=== PATIENT | male | born 1990 | race Two or more races ===

== ENCOUNTER → 2017-04-06 | Outpatient (CLI) | payer SELFPAY ==
[~2017-04-06] MED LIST: MIRALAX17 GM PO; NORCO 5-325 TA1 EACH PO
== END | disposition disaster alternative care site (69) ==
LOC: GAMB 00:17
DX: M54.5 Low back pain (principal); T14.90 Injury, unspecified; W19.XXXA Unspecified fall, initial encounter
CPT/HCPCS: A0425; A0428

== ENCOUNTER 2017-04-07 00:27 | Observation (INO) | payer SELFPAY ==
[~2017-04-07] VITALS: Ht 172.7 cm; Wt 116.0 kg
--- NOTE | ~2017-04-07 | CON ---
PATIENT'S NAME: NIKUNJ BLOOM [facility] AGE: 26 Y [address] ROOM: [place] [address] LOCATION: [facility] ADMIT DATE: 04/07/2017 Consultation DISCHARGE DATE: FAMILY PHYSICIAN: PHYSICIAN, UNKNOWN ATTENDING PHYSICIAN: JOE FAJARDO DATE OF CONSULTATION: 04/07/2017 CHIEF COMPLAINT: Fall from ladder with right humerus fracture. HISTORY: The patient is a 26-year-old male who fell about 12 feet from a ladder, who was seen in an outside hospital and found to have a humerus fracture. They were concerned about other possible injuries, so he was flown to [facility]. He was evaluated by the ER physician again and cleared for other significant injury, C-spine was cleared by the ER as well. The patient is complaining primarily of right humerus pain. Denies numbness or tingling. ORTHOPEDIC PHYSICAL EXAMINATION: GENERAL: A well-developed, well-nourished male, in [id number] distress. He is awake, alert, and cooperative with the exam. NECK: Supple and nontender. He has full C-spine range of motion without pain. MUSCULOSKELETAL: Examination of the left upper extremity and bilateral lower extremities reveal no pain to palpation or range of motion. No crepitus or deformity. The extremities are neurovascularly intact. Examination of the right upper extremity, he was in an air splint, this was deflated. There was swelling around the humerus. Compartments are soft. The skin is intact. He is nontender over the clavicle and shoulder and nontender over the elbow, forearm, wrist, and hand. Radial pulses are 2+. Medial, ulnar, and radial nerves are intact on motor and sensory testing. X-RAYS: We have one view of the humerus, which shows a short oblique humeral shaft fracture, looks like it is just distal to mid shaft, but again we do not see the entire humerus in this. IMPRESSION: Right humeral shaft fracture. PLAN: We are going to get better x-rays in the ER to fully evaluate this fracture, but recommendation is going to be for nonoperative treatment of his humeral PATIENT'S NAME: NIKUNJ BLOOM [facility] AGE: 26 Y [address] ROOM: [place] [address] LOCATION: [facility] ADMIT DATE: 04/07/2017 Consultation DISCHARGE DATE: FAMILY PHYSICIAN: PHYSICIAN, UNKNOWN ATTENDING PHYSICIAN: JOE FAJARDO shaft fracture. We will put him in a shoulder immobilizer tonight. He is going to be admitted to the hospitalist for pain control. We will have Log [employer]er come and put a Grant humeral fracture brace on him in the morning and this will be definitive treatment of his humeral fracture, and he can be discharged when the pain is controlled. He will follow up in the office. MD TIANNA LAMBERT/rima /[id number] d: 04/07/174 t: 04/13/17 1552, CONSULTATION REPORT
--- NOTE | ~2017-04-07 | OR ---
PATIENT'S NAME: NIKUNJ BLOOM [place] AGE: 26 Y [address] ROOM: [place] [address] LOCATION: [facility] ADMIT DATE: 04/07/2017 OR/Procedure Report DISCHARGE DATE: FAMILY PHYSICIAN: Physician, Unknown ATTENDING PHYSICIAN: Lidia Roberts SURGEON: Som Sewell MD CHIEF ENGINEER WATERWORKS: DATE OF PROCEDURE: 04/07/2017 PREOPERATIVE DIAGNOSIS: Right humeral shaft fracture. POSTOPERATIVE DIAGNOSIS: Right humeral shaft fracture. PROCEDURE: Nonoperative treatment, right humeral shaft fracture. DESCRIPTION OF OPERATION: The patient was seen in the ER with an angulated humeral shaft fracture. Recommendation was made for nonoperative treatment. This will initially be a shoulder immobilizer followed by a Grant humeral fracture brace. POSTOPERATIVE PLAN: We will follow him up once he is discharged as an outpatient with serial x-rays until healing. SOM SEWELL MD DMH/modl /[id number] d: 04/07/17 0127 t: 04/13/17 1550, OPERATIVE SUMMARY
--- NOTE | ~2017-04-07 | HP ---
[facility] 26 [facility] [address] ROOM: [place] [address] LOCATION: [facility] ADMIT DATE: 04/07/2017 History & Physical DISCHARGE DATE: FAMILY PHYSICIAN: PHYSICIAN, UNKNOWN ATTENDING PHYSICIAN: JOE FAJARDO DATE OF SERVICE: CHIEF COMPLAINT: Right shoulder pain after a mechanical fall. HISTORY OF PRESENT ILLNESS: This is a 26-year-old male who says that he was at home earlier today trying to fix some lamp while he was climbing up the ladder at home. Accidentally, he tripped and he fell off the ladder and he felt this pain in his right shoulder. He denies any head trauma or any syncope or any confusion or any chest pain or shortness of breath or any other complaints except the pain in the right shoulder. He knew he had fractured his shoulder because he could not really move and he was in excruciating pain from right shoulder. The patient was taken to the outside facility in [place] for evaluation where he was found to have a mid right humeral shaft fracture. The patient was referred here for our orthopedic care. The patient is a healthy individual, denies any past medical history, and does not take any medication. REVIEW OF SYSTEMS: As mentioned in the history of present illness. All other systems were reviewed and were negative except those mentioned in history of present illness. PAST MEDICAL HISTORY: None. ALLERGIES: NONE. HOME MEDICATIONS: None. SOCIAL HISTORY: Denies any cigarette, alcohol, or any illegal drug use. PAST SURGICAL HISTORY: None. PATIENT'S NAME: [facility] AGE: 26 Y [address] ROOM: [place] [address] LOCATION: [facility] ADMIT DATE: 04/07/2017 History & Physical DISCHARGE DATE: FAMILY PHYSICIAN: PHYSICIAN, UNKNOWN ATTENDING PHYSICIAN: JOE FAJARDO FAMILY HISTORY: Father is in [place], he does not know much about his father. His mother is healthy. PHYSICAL EXAMINATION: VITAL SIGNS: At time of my dictation, temperature 98, heart rate 84, blood pressure 135/97, respirations 16, and saturation 100% on room air. GENERAL APPEARANCE: Alert and oriented x3, currently in no acute distress. HEENT: Pupils are equally round and reactive to light. Extraocular muscles are intact. Anicteric sclerae. Nasal turbinates are normal bilaterally. Moist oral mucosa. NECK: No JVD. CARDIOVASCULAR: Regular rate and rhythm. Normal S1, S2. No murmur. No rubs. No gallops. RESPIRATORY: Clear to auscultation. No rales. No rhonchi. No wheezing. No crackles. ABDOMEN: Soft, nontender, nondistended, bowel sounds present, and no mass. EXTREMITIES: No edema in upper or lower extremities. Right shoulder has a shoulder immobilizer in place. Sensation and strength intact in all extremities. Cannot assess range of motion in the right shoulder due to the fracture, however, he has good strength in the right hand with journalism intern. Radial pulses are present, +2 bilaterally. NEUROLOGIC: Grossly nonfocal. LABORATORY DATA: None. IMAGING STUDIES: From the outside facility in [place], x-ray of the right shoulder showed mid humeral shaft fracture. Cervical spine, outside facility showed no acute abnormality. ASSESSMENT AND PLAN: 1. Right mid humeral shaft fracture after a mechanical fall: Orthopedic Surgery already saw the patient in the emergency room and the plan will be tomorrow he will have an immobilizer placed, and the patient does not require any surgical intervention and can be discharged home tomorrow after the immobilizer is exchanged and placed. The patient will be admitted under observation status and can have a regular diet and ambulate as tolerated. Pain control with IV morphine p.r.n. and IV fentanyl p.r.n. and also p.o. [place] p.r.n. and p.o. Tylenol p.r.n. The patient also gets iv Valium p.r.n. for muscle spasm. PATIENT'S NAME: NIKUNJ BLOOM [facility] AGE: 26 Y [address] ROOM: [place] [address] LOCATION: [facility] ADMIT DATE: 04/07/2017 History & Physical DISCHARGE DATE: FAMILY PHYSICIAN: PHYSICIAN, UNKNOWN ATTENDING PHYSICIAN: JOE FAJARDO 2. Right humerus shoulder fracture's pain control: See #1. 3. He is a full code. 4. DVT prophylaxis: He can walk, this is a humeral fracture, this is not a pelvic fracture. He is young, does not require any pharmacological agent. Time spent in care on the day of admission 25 minutes, where 5 minutes was spent on chart review, and remainder of the time was spent in interview and physical examination and also on counseling. The counseling includes going over the plan of care with the patient and also addressing all the questions and concerns that the patient had, and also I answered all his questions to his satisfaction. Further plan will depend on clinical course. MD PO CANO/rima /[id number] D: T: 658 HISTORY & PHYSICAL
--- NOTE | ~2017-04-07 | ER ---
[facility] 26 Y [address] ROOM: [place] [address] LOCATION: [facility] ADMIT DATE: 04/07/2017 ER/Outpatient Report DISCHARGE DATE: FAMILY PHYSICIAN: PHYSICIAN, UNKNOWN ATTENDING PHYSICIAN: JOE FAJARDO HISTORY OF PRESENT ILLNESS: This is a 26-year-old right-hand dominant male, who presents today as a transfer from [place] with a known right humerus fracture. The patient reports that approximately at 8 p.m. on 04/06/2017, which is about 4 hours prior to coming in he fell off a ladder. He says that there was something wrong with the ladder and fell about 12 feet. He fell to his right thigh direct blow. The patient really complains of just pain in that right arm and also on the right side. Denies any other complaints in his head. He says he has no neck pain. No back pain. No other complaints. No numbness or tingling. He was seen at the [place] ER. He had an x-ray of his cervical spine done and they put him in a C-collar. He also had an x-ray of his humerus, which shows a slightly angulated midshaft humerus fracture. The patient was then transferred here. He currently rates his pain as 6/10, but has required multiple doses of fentanyl and morphine. PAST MEDICAL HISTORY: None. PAST SURGICAL HISTORY: None. SOCIAL HISTORY: He does not smoke, drink, or use any drugs. MEDICATIONS: None. ALLERGIES: NONE. REVIEW OF SYSTEMS: Reviewed by me with the exception of those discussed in HPI. PHYSICAL EXAMINATION: VITAL SIGNS: He is 5 feet 8 inches, he weighs 116 kilos, blood pressure 127/78, heart rate 68, temp is 97.4, sats are 99% on room air. GENERAL: The patient does not appear in any acute distress at this time. HEENT: He has not had a dry mouth. Pupils equal and reactive to light. He has no C-spine tenderness at all. PATIENT'S NAME: NIKNUJ BLOOM [facility] AGE: 26 Y [address] ROOM: [place] [address] LOCATION: [facility] ADMIT DATE: 04/07/2017 ER/Outpatient Report DISCHARGE DATE: FAMILY PHYSICIAN: PHYSICIAN, UNKNOWN ATTENDING PHYSICIAN: JOE FAJARDO HEART: His heart rate is regular rate and rhythm at this time. LUNGS: His lungs sounds are clear. He has no chest wall tenderness. No crepitus. ABDOMEN: Soft, nontender, nondistended. He has no flank tenderness bilaterally. PELVIS: Stable. He has no suprapubic tenderness. No right lower quadrant tenderness. No upper quadrant tenderness. He has no bruising on his back. EXTREMITIES: Show his right arm is currently in a vacuum splint. There is no obvious deformity. He has soft compartments. So, he is able to wiggle his fingers. Intact sensation in bilateral upper and lower extremities. EMERGENCY ROOM COURSE: Dr. Gonzalez was consulted and he wrote notes ordering for a brace. He will be nonsurgical; however, the patient would need admission for pain control. Discussed with Dr. Fajardo, the hospitalist. The patient to be admitted to observation status for pain control for this humerus fracture. IMPRESSION: Humerus fracture. MD MAIRA SZYMANSKI/rima /[id number] d: 04/07/17 0542 t: 04/08/17 0406, OUTPATIENT REPORT
--- NOTE | 2017-04-07 07:52 | NUR ---
Admission Note: Pt arrived to floor at 0445. Pt had fallen approx 15 foot off a ladder this past evening and fracured his R) humerus. Pt is primarly citizen of [place] speaking, does understand maltese and is able to communicate fairly well. Arrived to floor via strecther, ambulated from stretcher to bed with SBA. Immobilizer on to RUE. CSM WNL. No known allergies. No signficant past medical history. Smokes and drinks alcohol occasionally. Vital signs stable. Foot pumps placed to bilateral feet. Verbalizes understanding of call light. Instructed to call if chest pain, shortness of breath, dizziness, etc. IV present to L) hand. Animal Technician to be called in am for brace, see orders.
--- NOTE | 2017-04-07 08:16 | NUR ---
Significant Event: To floor at 0445. Morphine 2 mg and [place] given. Pt sleeping after administration. IV to L) hand. Immobilizer on R) shoulder. CSM WNL. Ice. Foot pumps. Transferred with 1 assist, weak. Follow up: Property Utilization Manager to fit for brace.
[2017-04-07] MEDS ORDERED: NORCO 5-325 TA1 EACH PO (15:23)
[2017-04-07] MEDS ORDERED: MIRALAX17 GM PO (15:26)
--- NOTE | 2017-04-07 16:21 | NUR ---
pt and his family given discharge instructions and voices understanding. medications reviewed with paige speaking good omani. pt also voices he understadns omani well. escorted to the front door by this nurse. family at pt's side.
== END 2017-04-07 16:15 | disposition disaster alternative care site (69) ==
LOC: GACC 00:27 → G3N 01:56
PROVIDERS: ADMIT Internal Medicine
DX: S42.331A Displaced oblique fracture of shaft of humerus, right arm, initial encounter for closed fracture (principal); W11.XXXA Fall on and from ladder, initial encounter
CPT/HCPCS: G0378; J1170; J2270; J3360